=== PATIENT | female | born 1955 | race Caucasian/White ===

== ENCOUNTER → 2017-04-18 | Outpatient (CLI) | payer OTHER ==
[~2017-04-18] MED LIST: ADVIN50/60 INH; ALBUAER19 INH; CHOL100027 PO; CHOL20009 PO; EST1 PO; FAMO40TA6 PO; FLUO40CA8 PO; FLUT0.15 NAE; GFNSR600 PO; MULT-506 PO; SPIR1TAB72 PO; VITAMIN B SL
--- NOTE | 2017-04-18 08:33 | DIAGNOSTIC IMAGING REPORT ---
ABDOMEN FOR HERNIA CLINICAL HISTORY: Left lower quadrant pain. Abdominal wall hernia. COMPARISON STUDY: CT of the abdomen and pelvis December 18, 2012. TECHNIQUE: Sonography of the left lower anterior abdominal wall with and without stress maneuvers was performed. FINDINGS: No left lower quadrant abdominal wall hernia was identified. No mass or fluid collection was identified by sonography. IMPRESSION: No left lower quadrant abdominal hernia identified. Electronically signed by: Ritesh Ziegler M.D. 04/18/2017 8:31 AM Dictated Date/Time: 04/18/2017 8:30 AM
[2017-04-18 09:39] LABS: BASO ABS # 0.06 K/uL (0-0.2); COMPLETE YES; EOS % 7.4 %; HEMATOCRIT 43.7 % (37-47); IG% 0.2 %; LYMPH % 44.4 %; MEAN CELL VOLUME 93.4 fL (80-100); MEAN CORPUSCULAR HEMOGLOBIN 30.1 pg (25-34); MEAN CORPUSCULAR HGB CONC 32.3 g/dl (32-36); MEAN PLATELET VOLUME 10.7 fL (7.4-10.4); MONO % 9.7 %; NEUT % 37.3 %; PLATELET COUNT 317 K/uL (130-400); RED BLOOD COUNT 4.68 M/uL (4.2-5.4); WHITE BLOOD COUNT 5.85 K/uL (4.8-10.8)
[2017-04-18 09:50] LABS: ALT/SGPT 23 U/L (12-78); AST/SGOT 13 U/L (15-37); BLOOD UREA NITROGEN 22 mg/dl (7-18); BUN/CREATININE RATIO 18.3 (10-20); CARBON DIOXIDE 28 mmol/L (21-32); CHLORIDE 104 mmol/L (98-107); CHOLESTEROL 216 mg/dl (0-200); GLUCOSE 95 mg/dl (70-99); POTASSIUM 3.4 mmol/L (3.5-5.1); SODIUM 142 mmol/L (136-145); TRIGLYCERIDES 198 mg/dl (0-150); VERY LOW DENSITY LIPOPROT CALC 40 mg/dl
[2017-04-18 09:57] LABS: CALCIUM 8.8 mg/dl (8.5-10.1)
[2017-04-18 10:00] LABS: ALB/GLOB RATIO 0.9 (0.9-2); ALKALINE PHOSPHATASE 53 U/L (45-117); CHOLESTEROL/HDL RATIO 4.2; HDL CHOLESTEROL 51 mg/dl; LDL CHOLESTEROL CALCULATED 125 mg/dl; TOTAL IRON BINDING CAPACITY 407 mcg/dl (250-450)
[2017-04-18 10:48] LABS: ESTIMATED AVERAGE GLUCOSE 111 mg/dl; HA1C FLAG Normal (Normal)
== END | disposition home or self-care (01) ==
LOC: C.ULTR 07:36
PROVIDERS: ATTEND Family Medicine
DX: R73.09 Other abnormal glucose (principal); E55.9 Vitamin D deficiency, unspecified; D51.9 Vitamin B12 deficiency anemia, unspecified; E78.9 Disorder of lipoprotein metabolism, unspecified; R53.83 Other fatigue

== ENCOUNTER → 2017-06-12 | Day surgery (SDC) | payer OTHER ==
[2017-06-06 13:56] VITALS: Ht 156.2 cm; Wt 75.0 kg
[~2017-06-12] VITALS: Ht 156.2 cm; Wt 75.0 kg
[~2017-06-12] MED LIST changes: -CHOL100027 PO; +LIDOCAINE HCL 2% 2 ML VIAL (20MG/ML) ONE; -MULT-506 PO; +PROPOFOL IV EMULSION 10 MG/ML 20 ML VIAL IV ONE; +SODIUM CHLORIDE 0.9% 500ML 500 ML IV ONE
--- NOTE | 2017-06-12 11:47 | Endo History and Physical ---
History & Physical Date of Service: Jun 12, 2017. Chief Complaint: tubular adenoma Referring Physician: Dr. Lake Kingston History of Present Illness 61 yo CF who presents for colonoscopy secondary to history of colon polyps. Past Surgical History Hx Cardiac Surgery: No Hx Internal Defibrillator: No Hx Pacemaker: No Hx Abdominal Surgery: Yes (PARTIAL HYSTER WITH RECTUM AND BLADDER REPAIR R/T PROLAPSE, JOSÉ MIGUEL) Hx of Implantable Prosthesis: No Hx Post-Op Nausea and Vomiting: No Hx Cancer Surgery: No Hx Thoracic Surgery: No Hx Orthopedic: No Hx Urinary Tract Surgery: No Family History None Social History Smoking Status: Current Every Day Smoker Hx Substance Use: No Hx Alcohol Use: No Allergies Coded Allergies: Levofloxacin (Verified Allergy, Unknown, JOINT STIFFNESS, 06/06/17) Moxifloxacin (Verified Allergy, Unknown, RASH, 06/06/17) Sulfamethoxazole w/Trimethoprim (Verified Allergy, Unknown, HIVES, 06/06/17 ) Current Medications Reported Home Medications Medications Dose Route/Sig Max Daily Dose Days Date Category Flonase Allergy Relief (Fluticasone Propionate (Nasal)) 50 Mcg/Act Spr 2 [place] SOFIYA QAM PRN 06/06/17 Reported [Vitamin B] 1,500 Mcg SL BID 06/06/17 Reported Vitamin D (Cholecalciferol) 2,000 Unit Tab 1 Tab PO QAM 06/06/17 Reported Pepcid (Famotidine) 40 Mg Tab 40 Mg PO QAM 06/06/17 Reported Spironolactone/Hydrochlor 25-25 mg (HCTZ/Spironolactone) 1 Ea Tab 1 Tab PO QAM 06/06/17 Reported Ventolin Inhaler (Albuterol) Aers 2 Puffs INH Q4-6 PRN 12/18/12 Reported Advair Diskus 500/50 60 Dose (Fluticasone Prop/Salmeterol) 1 Ea Aerp 1 Puff INH BID 12/18/12 Reported Prozac (Fluoxetine HCl) 40 Mg Cap 40 Mg PO QAM 06/30/11 Reported Estrace * (Estradiol) 1 Mg Tab 1 Mg PO QAM 06/30/11 Reported Mucinex Ext Rel * (Guaifenesin) 600 Mg Tabcr 1,200 Mg PO BID 09/10/06 Reported Vital Signs Weight (Kilograms): 75 Height (Feet): 5 Height (Inches): 1.5 Date Time Temp Pulse Resp B/P (MAP) Pulse Ox O2 Delivery O2 Flow Rate FiO2 06/12/17 11:23 37.1 83 18 147/63 (91) 95 Room Air Physical Exam General Appearance: WD/WN, no apparent distress Respiratory/Chest: Auscultation: breath sounds normal Cardiovascular: Heart Auscultation: RRR Abdomen: Bowel Sounds: normal Inspection & Palpation: soft, non-distended, no tenderness, guarding & rebound Assessment and Plan Assessment: 61 yo CF who presents for colonoscopy secondary to history of colon polyps. Plan: Proceed with colonoscopy.
--- NOTE | 2017-06-12 12:26 | Discharge Instructions ---
Endoscopy Patient Instructions Date / Procedure(s) Performed Jun 12, 2017. Colonoscopy Allergy Information Coded Allergies: Levofloxacin (Verified Allergy, Unknown, JOINT STIFFNESS, 06/06/17) Moxifloxacin (Verified Allergy, Unknown, RASH, 06/06/17) Sulfamethoxazole w/Trimethoprim (Verified Allergy, Unknown, HIVES, 06/06/17 ) Discharge Date / Findings Jun 12, 2017. Stool aspirate collected Colon polyp Diverticulosis Internal hemorrhoids Medication Instructions OK to resume all medications today as prescribed Reported Home Medications Medications Dose Route/Sig Max Daily Dose Days Date Category Flonase Allergy Relief (Fluticasone Propionate (Nasal)) 50 Mcg/Act Spr 2 [place] SOFIYA QAM PRN 06/06/17 Reported [Vitamin B] 1,500 Mcg SL BID 06/06/17 Reported Vitamin D (Cholecalciferol) 2,000 Unit Tab 1 Tab PO QAM 06/06/17 Reported Pepcid (Famotidine) 40 Mg Tab 40 Mg PO QAM 06/06/17 Reported Spironolactone/Hydrochlor 25-25 mg (HCTZ/Spironolactone) 1 Ea Tab 1 Tab PO QAM 06/06/17 Reported Ventolin Inhaler (Albuterol) Aers 2 Puffs INH Q4-6 PRN 12/18/12 Reported Advair Diskus 500/50 60 Dose (Fluticasone Prop/Salmeterol) 1 Ea Aerp 1 Puff INH BID 12/18/12 Reported Prozac (Fluoxetine HCl) 40 Mg Cap 40 Mg PO QAM 06/30/11 Reported Estrace * (Estradiol) 1 Mg Tab 1 Mg PO QAM 06/30/11 Reported Mucinex Ext Rel * (Guaifenesin) 600 Mg Tabcr 1,200 Mg PO BID 09/10/06 Reported Provider Instructions Activity Restrictions - No exercising or heavy lifting for 24 hours. - Do not drink alcohol the day of the procedure. - Do not drive a car or operate machinery until the day after the procedure. - Do not make any important decisions or sign important papers in 24 hours after the procedure. Following Day: - Return to full activity which may include returning to work/school. Diet Start your diet with liquids and light foods (jello, soup, juice, toast). Then eat your usual diet if not nauseated. Treatment For Common After Affects For mild abdominal pain, bloating, or excessive gas: - Rest - Eat lightly - Lie on right side Follow-Up Information Follow-up with Dr. Lake Kingston as scheduled Anesthesia Information What You Should Know You have had a procedure that required some medicine to reduce anxiety and discomfort. This treatment is called moderate sedation. After receiving the treatment, you may be sleepy, but you will be able to breathe on your own. The effects of the treatment may last for several hours. Follow these instructions along with Activity/Diet recommendations noted above: * Do NOT do anything where dizziness or clumsiness would be dangerous. * Rest quietly at home today, then you can be up and about tomorrow. * Have a responsible person stay with you the rest of today. * You may have had an I.V. today. If so, you may take the dressing off later today. Recommendations Call your doctor if: * Trouble breathing * Continuous vomiting for more than 24 hours * Temperature above 101 degrees * Severe abdominal pain or bloating * Pain not relieved by pain medicine ordered * There is increased drainage or redness from any incision * A large amount of rectal bleeding greater than 2-3 tablespoons. (If you had a polyp/s removed or have hemorrhoids, a small amount of blood - from the rectum is to be expected.) * You have any unanswered questions or concerns. IN THE EVENT OF A SERIOUS EMERGENCY, GO TO THE NEAREST EMERGENCY ROOM Your discharge instructions were prepared by provider Sam Milan. Patient Instructions Signature Page Lela Sharpe Patient (or Guardian) Signature/Date: I have read and understand the instructions given to me by my caregivers. Caregiver/RN/Doctor Signature/Date: The above-named patient and/or guardian has received patient instructions on this date. + Original Patient Signature Page (only) stays with chart. Please make copy for patient.
--- NOTE | 2017-06-12 12:32 | GI REPORT ---
Procedure Date: 06/12/2017 11:52 AM Procedure: Colonoscopy Indications: High risk colon cancer surveillance: Personal history of colonic polyps Medicines: Monitored Anesthesia Care Complications: No immediate complications. Estimated Blood Loss: Estimated blood loss: none. Procedure: Pre-Anesthesia Assessment: - Prior to the procedure, a History and Physical was performed, and patient medications and allergies were reviewed. The patient's tolerance of previous anesthesia was also reviewed. The risks and benefits of the procedure and the sedation options and risks were discussed with the patient. All questions were answered, and informed consent was obtained. Prior Anticoagulants: The patient has taken no previous anticoagulant or antiplatelet agents. ASA Grade Assessment: III - A patient with severe systemic disease. After reviewing the risks and benefits, the patient was deemed in satisfactory condition to undergo the procedure. After I obtained informed consent, the scope was passed under direct vision. Throughout the procedure, the patient's blood pressure, pulse, and oxygen saturations were monitored continuously. The Scope was introduced through the anus and advanced to the terminal ileum. The colonoscopy was performed without difficulty. The patient tolerated the procedure well. The quality of the bowel preparation was good. The terminal ileum, ileocecal valve, appendiceal orifice, and rectum were photographed. Findings: A 4 mm polyp was found in the transverse colon. The polyp was sessile. The polyp was removed with a hot snare. Resection and retrieval were complete. Multiple small-mouthed diverticula were found in the sigmoid colon. Non-bleeding internal hemorrhoids were found during retroflexion. The hemorrhoids were small. Fluid aspiration for cytology was performed in the entire colon. Impression: - One 4 mm polyp in the transverse colon, removed with a hot snare. Resected and retrieved. - Diverticulosis in the sigmoid colon. - Non-bleeding internal hemorrhoids. - Fluid aspiration was performed. Recommendation: - Resume previous diet. - Continue present medications. - Repeat colonoscopy for surveillance based on pathology results. - Return to primary care physician as previously scheduled. Sam Milan DO 06/12/2017 12:31:47 PM This report has been signed electronically. Note Initiated On: 06/12/2017 11:52 AM I attest to the content of the Intraoperative Record and orders documented therein, exceptions below
[2017-06-12 12:57] VITALS: BP 128/62; PULSE 70; O2SAT 98
--- NOTE | 2017-06-12 13:10 | Anesthesiology Progress Note ---
Anesthesia Post Op Note Date & Time Jun 12, 2017 at 13:10 Vital Signs Pain Intensity: 0 Vital Signs Past 12 Hours Date Time Temp Pulse Resp B/P (MAP) Pulse Ox O2 Delivery O2 Flow Rate FiO2 06/12/17 12:57 70 20 128/62 (84) 98 Room Air 06/12/17 12:40 75 20 134/85 (101) 98 Room Air 06/12/17 12:25 70 18 96/56 (69) 97 Room Air 06/12/17 11:23 37.1 83 18 147/63 (91) 95 Room Air Notes Mental Status: alert / awake / arousable, participated in evaluation Pt Amnestic to Procedure: Yes Nausea / Vomiting: adequately controlled Pain: adequately controlled Airway Patency, RR, SpO2: stable & adequate BP & HR: stable & adequate Hydration State: stable & adequate Anesthetic Complications: no major complications apparent
== END | disposition home or self-care (01) ==
LOC: C.GI 10:55
PROVIDERS: ATTEND Internal Medicine
DX: Z12.11 Encounter for screening for malignant neoplasm of colon (principal); Z86.010 Personal history of colon polyps; D12.3 Benign neoplasm of transverse colon; K57.92 Diverticulitis of intestine, part unspecified, without perforation or abscess without bleeding; K64.8 Other hemorrhoids; Z90.711 Acquired absence of uterus with remaining cervical stump; Z90.49 Acquired absence of other specified parts of digestive tract; F17.200 Nicotine dependence, unspecified, uncomplicated; Z90.89 Acquired absence of other organs; J45.909 Unspecified asthma, uncomplicated; K21.9 Gastro-esophageal reflux disease without esophagitis; E55.9 Vitamin D deficiency, unspecified; E53.8 Deficiency of other specified B group vitamins